=== PATIENT | male | born 1985 | race Caucasian/White ===

== ENCOUNTER 2021-10-23 13:23 | Emergency (ER) | payer OTHER ==
[~2021-10-23] VITALS: Ht 180.3 cm; Wt 86.2 kg
[~2021-10-23 13:23] MED LIST: CEPH500 PO; HYDACE10B PO; HYDACE5 PO; NAPR500 PO
== END 2021-10-23 14:11 | disposition home or self-care (01) ==
LOC: ER 13:23
DX: S51.831A Puncture wound without foreign body of right forearm, initial encounter (principal); F17.210 Nicotine dependence, cigarettes, uncomplicated; W22.8XXA Striking against or struck by other objects, initial encounter; Z23 Encounter for immunization
CPT/HCPCS: 90714

== ENCOUNTER 2024-05-25 02:13 | Emergency (ER) | payer OTHER ==
[~2024-05-25] VITALS: Ht 182.9 cm; Wt 81.7 kg
[2024-05-25 02:27] VITALS: BP 148/100
== END 2024-05-25 04:59 | disposition home or self-care (01) ==
LOC: ER 02:13
DX: S01.511A Laceration without foreign body of lip, initial encounter (principal); Y04.0XXA Assault by unarmed brawl or fight, initial encounter; F17.210 Nicotine dependence, cigarettes, uncomplicated
CPT/HCPCS: 99282